=== PATIENT | female | born 1995 | race Caucasian/White ===

== ENCOUNTER 2016-02-16 11:24 | Emergency (ER) | payer MEDICAID ==
[2016-02-16 11:42] VITALS: BP 120/77
[2016-02-16] MEDS ORDERED: HYDROcodone/ACETAMIN 5-325 MG* 1 TAB PO ONE (14:50)
--- NOTE | 2016-02-16 15:56 | UC ---
kayleigh Pizarro Timothy, scribed for Gabbi Harris MD on 02/16/16 at 1441 . Headache HPI - HPI Summary HPI Summary: Christin Griffith is a 20 yo female presenting to [facility] with self-diagnosed 09/23 ache- "migraine"-ESPINOZA with neck and upper back pain for the past 24 hours, with pain steadily increasing. Pt had a baby on 02/03/2016 and received an epidural. Pt did not have a . Pt denies having any residual ESPINOZA's after the epidural , did not have the headache until yesterday. Her upper back back pain has been chronic through her in the cervical and lumbar paraspinous region, radiating through the trapezius muscles in the neck. She states that her back pain has increased from baseline level. Pt was seen by me for similar neck and back pain on 12/27/15 during her and given a cervical collar which she has used with some relief. Her ESPINOZA radiates from the back of her head to her temples, sometimes causing double vision and dizziness, and worsening through the day. Her headache is not worse based on position and describes it as a "headrush" when she gets up. She denies any fever, or other URI symptoms. She has not self-medicated today, but has tried tylenol, ibruprofen, naproxen, heating pads, and ice packs with no relief. She has a Hx of head aches, scoliosis, and anxiety. She has seen a chiropractor for this. Pt states she still has lochia and that she is not and that she has not had intercourse since childbirth. - History Of Current Complaint Chief Complaint: UCGeneralIllness Stated Complaint: HEADACHE NECK PAIN BACK PAIN DIZZY Time Seen by Provider: 02/16/16 14:21 Hx Obtained From: Patient Hx Last Menstrual Period: vaginal delivery 02/03/16 ?: No Onset/Duration: Sudden Onset, Lasting Hours, Still Present, Worse Since - constantly Onset Of Symptoms: Sudden Initially Headache Was: Initial Pain Scale(0-10)= - 8 Currently Pain Is: Current Pain Scale(0-10)= - 8, Moderate Pain Intensity: 8 Pain Scale Used: 0-10 Numeric Timing: Constant Character: Dull - "ache" Location of Headache: Frontal, Occipital Aggravating Factor: Nothing Allevating Factors: Nothing Associated Signs And Symptoms: Positive: Neck Pain, Visual Changes, Other ( Noted In Comments) - upper back pain Related History: Similar Episode/DX As: - musculoskeletal back and neck pain, scoliosis and migraine - Risk Factors SAH Risk Factors: Negative Meningitis Risk Factors: Negative SDH Risk Factors: Negative - Allergies/Home Medications Allergies/Adverse Reactions: Allergies Allergy/AdvReac Type Severity Reaction Status Date / Time No Known Allergies Allergy Verified 02/16/16 11:42 PMH/Surg Hx/FS Hx/Imm Hx Previously Healthy: No - scoliosis Endocrine History Of: Denies: Diabetes, Thyroid Disease, Hyperthyroidism, Hypothyroidism, Dyslipidemia Cardiovascular History Of: Denies: Cardiac Disorders, Hypertension, Pacemaker/ICD, Myocardial Infarction , Congestive Heart Failure, Atrial Fibrillation, Deep Vein Thrombosis, Bleeding Disorders Respiratory History Of: Denies: COPD, Asthma, Bronchitis, Pneumonia, Pulmonary Embolism GI/ History Of: Denies: Gastroesophageal Reflux, Ulcer, Gastrointestinal Bleed, Gall Bladder Disease, Kidney Stones, Diverticulitis, Renal Disease, Urosepsis Neurological History Of: Denies: TIA, CVA, Dementia, Seizures, Migraine Psychological History Of: Reports: Anxiety - No medications, no previous treatment. Denies: Depression, Bipolar Disorder, Schizophrenia, Post Traumatic Stress Disorder Cancer History Of: Denies: Lung Cancer, Colorectal Cancer, Breast Cancer, Prostate Cancer, Cervical Cancer Other History Of: Negative For: HIV, Hepatitis B, Hepatitis C, Anticoagulant Therapy - Surgical History Surgical History: Yes Surgery Procedure, Year, and Place: LYMPH NODE REMOVED AT AGE 7 - Family History Known Family History: Positive: Cardiac Disease, Diabetes Family History: FHx of edilma gehrig's disease - grandmother - Social History Lives: With Family Alcohol Use: None Substance Use Type: None Smoking Status (MU): Never Smoked Tobacco Have You Smoked in the Last Year: No - Immunization History Most Recent Influenza Vaccination: 12/15/2015 Most Recent Tetanus Shot: 12/15/2015 Most Recent Pneumonia Vaccination: never Review of Systems Constitutional: Negative Skin: Negative Eyes: Blurred Vision ENT: Other - neck pain Respiratory: Negative Cardiovascular: Negative Gastrointestinal: Negative Genitourinary: Negative Motor: Negative Neurovascular: Negative Musculoskeletal: Other: - upper back pain Neurological: Headache, Other - dizziness Psychological: Negative All Other Systems Reviewed And Are Negative: Yes Physical Exam Triage Information Reviewed: Yes Appearance: Well-Appearing, Well-Nourished, Pain Distress - mild, Other: - pt smiles, is interactive, not photophobic Vital Signs: Initial Vital Signs Temp 97.6 F 02/16/16 11:32 Pulse 92 02/16/16 11:32 Resp 20 02/16/16 11:32 BP 120/77 02/16/16 11:32 Pulse Ox 99 02/16/16 11:32 Vital Signs Reviewed: Yes Eyes: Positive: Conjunctiva Clear ENT: Positive: Hearing grossly normal, Pharynx normal, TMs normal. Negative: Muffled/hoarse voice Dental Exam: Normal Neck: Positive: Supple. Negative: Nontender - tender paraspinous bilateral Respiratory: Positive: Lungs clear, Normal breath sounds, No respiratory distress Cardiovascular: Positive: RRR, No Murmur, Pulses Normal, Brisk Capillary Refill Musculoskeletal: Positive: Strength Intact, ROM Intact Neurological: Positive: Alert, Muscle Tone Normal, Other: - knee/ankle reflexes are intact and symmetric, gait is normal, PERRL EOMI. Psychological Exam: Normal Skin: Positive: Other - no erythema or edema or drainage at location of epidural injection, site is healed over and tender to palpation, but not more tender than other areas of pain Re-Evaluation - Re-Evaluation First Eval Re-Evaluation Time: 15:01 Change: Unchanged Comment: Pt describes ESPINOZA as head rogel with change in positions, like she's hanging upside down. Second Eval Re-Evaluation Time: 15:13 Change: Unchanged Comment: Pt is informed of results of second consult with Dr. Hinkle, agrees to be discharged with the understanding that if Sx worsen she should appear at [facility]. Additionally, Pt has seen the chiropractor, who Dx her with scoliosis, with a 40 degree angle in her spine. Additionally, she has not had intercourse since her , ruling out a new despite positive HCG. She was advised to follow up with her PCP for either a referral to the pain clinic, or to contact an anesthesiologist. Headache Course/Dx - Course Course Of Treatment: HCG displayed positive resutls, however Pt is still bleeding with lochia post and she has not had intercourse since the , so it is likely that her HCG is still elevated but not indicative of another . UA results: color: brown, pink. character: cloudy. Bilirubin: negative. Urobilingen: normal. ketones: negative. Ascorbic acid: negative. Glucose: negative. Protein: 100 mg/dL. blood: +++. pH: 5. Nitrite: negative. leukocytes: 500 WBC/microliter. Specific gravity: 1.010. Christin Griffith is a 20 yo female presenting to [facility] with head, neck, and back pain S/P an epidural during vaginal childbirth on 02/03/2016. Her Hx is significant for scoliosis, DM. After consult with Dr. Hinkle, spinal leakage was deemed very unlikely as review of the record by Dr. Hinkle shows that did not obtain spinal fluid. Pt will be discharged home with instructions to follow up with her PCP and return to urgent care or appear to the ED with any worse or new symptoms. - Differential Dx/Diagnosis Differential Diagnosis/HQI/PQRI: Other - spinal head ache Provider Diagnoses: acute cephalgia. acute low back pain. acute cervical strain. hx scoliosis - Physician Notifications Discussed Patient Care With: 6070 - Dr. Hinkle (Anesthesiology) - Discussed Pt condition and possible necessity of transfer to [facility]. Will check records and perform further examination before any decision is made. 1503 - Dr. Hinkle ( Anesthesiology) - Very unlikely that Pt's ESPINOZA is due to leakeage of spinal fluid , and he would not recomend a blood patch. Dr. Hinkle reviewed the record, and a spinal fluid sample was not obtained, needle only went into epidural space. Instructed by Provider To: Other - discharge home Discharge - Discharge Plan Condition: Stable Disposition: HOME Prescriptions: HYDROcodone/ACETAMIN 5-325 MG* [[place] 5-325 TAB*] 1 tab PO Q4H PRN #15 tab MDD 6 PRN Reason: Pain Patient Education Materials: Scoliosis in Children (GEN), Acute Low Back Pain ( ED), General Headache (ED) Referrals: Gamal Mendoza NP [Primary Care Provider] - 2 Days Additional Instructions: Return to urgent care or the emergency department with any new or recurring symptoms. The documentation as recorded by the kayleigh beaver Timothy accurately reflects the service I personally performed and the decisions made by , Gabbi Harris MD.
== END 2016-02-16 15:34 | disposition home or self-care (01) ==
LOC: UCEAST 11:24
DX: M54.2 Cervicalgia (principal); M54.5 Low back pain; S16.1XXA Strain of muscle, fascia and tendon at neck level, initial encounter; X58.XXXA Exposure to other specified factors, initial encounter; Y93.9 Activity, unspecified; Y92.9 Unspecified place or not applicable; R51 Headache; Z32.01 Encounter for pregnancy test, result positive; M41.9 Scoliosis, unspecified
CPT/HCPCS: 81002; 81025; 87086; 99212; G0463

== ENCOUNTER 2018-11-18 00:11 | Emergency (ER) | payer OTHER ==
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
--- NOTE | 2018-11-18 07:22 | ED ---
Progress - Progress Note Progress Note: The patient is a sign-out from Dr. Mp Fermin MD, to Dr. Branden Ramirez MD, at change of shift at 0700 on 11/18/18, pending sobriety and likely discharge. 0739 - patient is awake and ambulatory; we discussed the reason for her visit, and she denies any SI or HI at this time so she will be discharged home Re-Evaluation - Re-Evaluation First Eval Re-Evaluation Time: 07:39 Change: Improved Comment: Nurse reports that patient is awake and ambulatory. We will evaulate for discharge. Course/Dx - Course Course Of Treatment: The patient is a sign-out from Dr. Mp Fermin MD, to Dr. Branden Ramirez MD, at change of shift at 0700 on 11/18/18, pending sobriety and likely discharge. As the patient is awake and ambulatory, and she is denying any SI or HI at this time, she is clear for discharge home. She understands and agrees with this plan. - Diagnoses Provider Diagnoses: Alcohol intoxication Discharge ED - Sign-Out/Discharge Documenting (check all that apply): Patient Departure - Patient will be discharged home., Receiving Sign-Out Receiving patient FROM: Mp Fermin - Patient is a sign-out from Dr. Mp Fermin MD, at change of shift at 0700 on 11/18/18, pending sobriety and likely discharge. - Discharge Plan Condition: Good Disposition: HOME Patient Education Materials: Alcohol Intoxication (ED) Referrals: [facility] [Outside] Markus Dotson DO [Primary Care Provider] - Additional Instructions: Follow up with your primary care provider in 2-3 days. Return to the emergency department for any new or worsening symptoms. - Billing Disposition and Condition Condition: GOOD Disposition: Home - Attestation Statements Document Initiated by Scribe: Yes Documenting Scribe: Christina Stanley Provider For Whom Jordi is Documenting (Include Credential): Dr. Branden Ramirez MD Scribe Attestation: Christina Pizarro scribed for Dr. Branden Ramirez MD on 11/19/18 at 0910. Scribe Documentation Reviewed: Yes Provider Attestation: The documentation as recorded by the Christina beaver accurately reflects the service I personally performed and the decisions made by me, Dr. Branden Ramirez MD Status of Scribe Document: Viewed Procedures - Sedation Patient Received Moderate/Deep Sedation with Procedure: No
[2018-11-18 07:40] VITALS: BP 116/59
== END 2018-11-18 07:57 | disposition home or self-care (01) ==
LOC: ED 00:11
DX: F10.129 Alcohol abuse with intoxication, unspecified (principal)
CPT/HCPCS: 99282